=== PATIENT | male | born 2000 | race Two or more races ===

== ENCOUNTER 2022-11-19 12:15 | Emergency (ER) | payer OTHER ==
[2022-11-19 12:35] VITALS: BP 125/85; PULSE 93; RESP 19; TEMP 98.1; BMI 19.9
[2022-11-19] MEDS ORDERED: KETOROLAC TROMETHAMINE 30 MG/1 ML VIAL IM ONE (14:05)
[2022-11-19] MEDS ORDERED: METHOCARBAMOL 750 MG TABLET PO ONE (14:05)
[2022-11-19] MEDS ORDERED: KETOROLAC TROMETHAMINE 30 MG/1 ML VIAL ONE (14:09)
[2022-11-19] MEDS ORDERED: METHOCARBAMOL 500 MG TABLET ONE (14:09)
== END 2022-11-19 14:33 | disposition home or self-care (01) ==
LOC: JERFT 12:15
PROC: 3E0233Z Introduction of Anti-inflammatory into Muscle, Percutaneous Approach (ICD-10-PCS; principal; 2022-11-19)
DX: M54.50 Low back pain, unspecified (principal); V79.49XA Driver of bus injured in collision with other motor vehicles in traffic accident, initial encounter; Y93.I9 Activity, other involving external motion
CPT/HCPCS: 99284-25